=== PATIENT | female | born 1985 | race Caucasian/White ===

== ENCOUNTER 2022-04-26 22:50 | Emergency (ER) | payer BC ==
[~2022-04-26] VITALS: Ht 165.1 cm; Wt 72.6 kg
--- NOTE | 2022-04-26 23:00 | NUR ---
Dr. Bowling at bedside. MSE in progress.
[2022-04-26] MEDS ORDERED: LIDOCAINE HCL 2% 20 ML VIAL ONE (23:13)
[2022-04-26] MEDS ORDERED: SODIUM BICARBONATE 4.2 % (NEUT) 5 ML VIAL ONE (23:13)
[2022-04-26] MEDS ORDERED: CEphaleXIN 500 MG CAPSULE PO ONE (23:30)
[2022-04-26] MEDS ORDERED: CEphaleXIN 500 MG CAPSULE ONE (23:35)
[2022-04-26] MEDS ORDERED: CEPH500T PO (23:51)
[2022-04-26] MEDS ORDERED: HYDR-4209 PO (23:51)
--- NOTE | 2022-04-26 23:58 | NUR ---
Patient discharged to home in stable condition. A/O x4. NAD noted. All belongings with patient. Written and verbal after care instructions given. Patient verbalizes understanding of instructions. Stressed follow up or return to ER for worsening s/s.
[2022-04-27 00:02] VITALS: BP 130/71
[2022-04-27] MEDS ORDERED: LIDOCAINE HCL 2% 20 ML VIAL IJ ONE (00:15)
[2022-04-27] MEDS ORDERED: SODIUM BICARBONATE 4.2 % (NEUT) 5 ML VIAL IJ ONE (00:15)
== END 2022-04-26 23:58 | disposition home or self-care (01) ==
LOC: ER 22:50
DX: S91.114A Laceration without foreign body of right lesser toe(s) without damage to nail, initial encounter (principal); W25.XXXA Contact with sharp glass, initial encounter; Y92.89 Other specified places as the place of occurrence of the external cause; Z88.1 Allergy status to other antibiotic agents
CPT/HCPCS: 99283; 73660; 12001; J3490 ×2; A4663

== ENCOUNTER 2024-12-26 20:38 | Emergency (ER) | payer BC ==
[~2024-12-26] VITALS: Ht 165.1 cm; Wt 77.1 kg
[~2024-12-26 20:38] MED LIST: CEPH500T PO; HYDR-4209 PO
[2024-12-26] MEDS ORDERED: ROSU20TA2 PO (20:48)
[2024-12-26] MEDS ORDERED: ZOLP10TA2 PO (20:48)
[2024-12-26] MEDS ORDERED: FLUO40CA8 PO (20:48)
[2024-12-26 21:04] LABS: BASOPHILS # (AUTO) 0.1 K/UL (0.0-0.2); BASOPHILS % (AUTO) 0.6 % (0.0-2.0); EOSINOPHILS # (AUTO) 0.1 K/uL (0.0-0.7); EOSINOPHILS % (AUTO) 0.7 % (0.0-7.0); HEMATOCRIT 41.3 % (31.2-41.9); LYMPHOCYTES # (AUTO) 1.4 K/uL (0.8-4.8); LYMPHOCYTES % (AUTO) 16.3 % (20.5-51.5); MEAN CORPUSCULAR HEMOGLOBIN 30.3 uug (24.7-32.8); MEAN CORPUSCULAR HGB CONC 34 g/dL (32.3-35.6); MEAN CORPUSCULAR VOLUME 89.6 fL (75.5-95.3); MONOCYTES # (AUTO) 0.7 K/uL (0.1-1.30); MONOCYTES % (AUTO) 7.8 % (0.0-11.0); NEUTROPHILS # (AUTO) 6.6 K/uL (1.8-8.9); NEUTROPHILS % (AUTO) 74.6 % (38.5-71.5); PLATELET COUNT (AUTO) 394 K/uL (179-408); RED BLOOD CELL COUNT(AUTO) 4.61 MIL/uL (3.63-4.92); RED CELL DISTRIBUTION WIDTH 13.9 % (12.3-17.7); WHITE BLOOD COUNT (AUTO) 8.9 K/uL (3.8-11.8)
[2024-12-26 21:05] LABS: *BILIRUBIN,URIN NEGATIVE (NEGATIVE); *BLOOD, URINE 3+ (NEGATIVE); *CLARITY,URINE CLEAR (CLEAR); *COLOR,URINE YELLOW (YELLOW); *KETONES,URINE NEGATIVE (NEGATIVE); *PROTEIN,URINE TRACE (NEGATIVE); *UROBILINOGEN,URINE 0.2 E.U./dl (NORMAL); LEUKOCYTE ESTERASE ,URINE NEGATIVE (NEGATIVE); NITRITE, URINE NEGATIVE (NEGATIVE); PH,URINE 6.5 (5.0-8.0); UGLUCOSE NEGATIVE (NEGATIVE)
[2024-12-26 21:12] LABS: *URINE HCG, QUAL NEGATIVE (NEGATIVE); WBC,URINE 0-3 /HPF (0-3)
[2024-12-26] MEDS ORDERED: MORPHINE SULFATE 4 MG/1 ML DISP.SYRIN ONE (21:13)
[2024-12-26] MEDS ORDERED: ONDANSETRON 4 MG/2 ML VIAL ONE (21:13)
[2024-12-26] MEDS: IV NORMAL SALINE 1000 ML BAG IV ONE (21:16)
[2024-12-26] MEDS: MORPHINE SULFATE 4 MG/1 ML DISP.SYRIN IV ONE (21:17)
[2024-12-26] MEDS: ONDANSETRON 4 MG/2 ML VIAL IV ONE (21:17)
[2024-12-26 21:22] LABS: ALBUMIN 3.8 g/dL (3.4-5.0); BILIRUBIN,DIRECT 0.1 mg/dL (0.0-0.2); BILIRUBIN,TOTAL 0.3 mg/dL (0.2-1.0); CALCIUM 9.5 mg/dL (8.5-10.1); CREATININE 0.7 mg/dL (0.6-1.3); POTASSIUM 3.7 mmol/L (3.5-5.1); TOTAL PROTEIN, SERUM 7.6 g/dL (6.4-8.2)
[2024-12-26] MEDS ORDERED: KETOROLAC TROMETHAMINE 30 MG INJ ONE (22:00)
[2024-12-26] MEDS: KETOROLAC TROMETHAMINE 30 MG INJ IVP ONE (22:20)
[2024-12-26] MEDS ORDERED: MAG HYDROX/AL HYDROX/SIMETH 30 ML LIQUID UDC ONE (22:34)
[2024-12-26] MEDS ORDERED: HYDROMORPHONE 1 MG/1 ML DISP.SYRIN ONE (22:34)
[2024-12-26] MEDS: HYDROMORPHONE 1 MG/1 ML DISP.SYRIN IV ONE (22:38)
[2024-12-26] MEDS: MAG HYDROX/AL HYDROX/SIMETH 30 ML LIQUID UDC PO ONE (22:38)
[2024-12-26] MEDS ORDERED: DICY20TA11 PO (23:00)
[2024-12-26] MEDS ORDERED: ONDA4TAB5 PO (23:00)
[2024-12-26] MEDS ORDERED: POLY17PO4 PO (23:00)
[2024-12-26] MEDS ORDERED: MAG30ORA GT (23:00)
[2024-12-26] MEDS ORDERED: NAPR-1192 PO (23:05)
[2024-12-26 23:11] VITALS: BP 153/98; O2SAT 97
== END 2024-12-26 23:12 | disposition home or self-care (01) ==
LOC: ER 20:38
DX: R19.7 Diarrhea, unspecified (principal); R10.9 Unspecified abdominal pain; R11.10 Vomiting, unspecified; E78.5 Hyperlipidemia, unspecified; Z79.899 Other long term (current) drug therapy; Z88.1 Allergy status to other antibiotic agents; Z88.7 Allergy status to serum and vaccine; Z86.59 Personal history of other mental and behavioral disorders; Z88.8 Allergy status to other drugs, medicaments and biological substances; Z60.2 Problems related to living alone
CPT/HCPCS: 99285; 76705; 96374; 96375; 96361; 80076; 80048; 81001; 84703; 83690; 85025; 36415; 76856; J1885; J2405; J1171; J2270; J7040; A4606; A4663

== ENCOUNTER 2025-06-07 18:01 | Emergency (ER) | payer BC ==
[~2025-06-07] VITALS: Ht 165.1 cm; Wt 72.6 kg
[~2025-06-07 18:01] MED LIST changes: -CEPH500T PO; +DICY20TA3 PO; +FLUO40CA8 PO; -HYDR-4209 PO; +MAG30ORA GT; +NAPR-1192 PO; +ONDA4TAB5 PO; +POLY17PO4 PO; +ROSU20TA2 PO; +ZOLP10TA2 PO
[2025-06-07] MEDS ORDERED: ASCO500C18 PO (18:48)
[2025-06-07] MEDS ORDERED: IBUPROFEN 800 MG TABLET ONE (19:00)
[2025-06-07] MEDS: IV NS 1000 ML 1,000 ML IV ONE (19:05)
[2025-06-07] MEDS: IBUPROFEN 800 MG TABLET PO ONE (19:05)
[2025-06-07 19:48] VITALS: BP 114/79; O2SAT 98
[2025-06-07 20:04] VITALS: TEMP 98.4
== END 2025-06-07 20:36 | disposition left against medical advice (07) ==
LOC: ER 18:01
DX: B34.9 Viral infection, unspecified (principal); J02.9 Acute pharyngitis, unspecified; R50.9 Fever, unspecified; R09.81 Nasal congestion; E78.5 Hyperlipidemia, unspecified; G47.00 Insomnia, unspecified; I51.9 Heart disease, unspecified; Z79.899 Other long term (current) drug therapy; Z88.1 Allergy status to other antibiotic agents; Z88.7 Allergy status to serum and vaccine; Z60.2 Problems related to living alone; Z20.822 Contact with and (suspected) exposure to COVID-19
CPT/HCPCS: 86403; 87070; A4606; A4663; J7040